=== PATIENT | female | born 1990 | race Caucasian/White ===

== ENCOUNTER 2017-02-25 06:32 | Emergency (ER) | payer OTHER ==
[2017-02-25] MEDS ORDERED: NORCO 5/325 PO ONE (09:22)
[2017-02-25] MEDS ORDERED: MOTRIN PO ONE (09:22)
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
--- NOTE | 2017-02-25 11:03 | XRay Report ---
LEFT HIP, 2 views: History: Left hip pain. The bony architecture is intact without evidence of fracture or dislocation. No significant soft tissue abnormality is seen. IMPRESSION: Normal left hip.
--- NOTE | 2017-02-25 11:03 | XRay Report ---
LEFT KNEE, 3 views: History: Left knee pain. There is normal bone mineralization. Previous ACL repair changes are identified. There are early osteoarthritic changes medial compartment. No evidence for fracture, malalignment or large joint effusion. IMPRESSION: No acute process identified.
--- NOTE | 2017-02-25 11:04 | XRay Report ---
LUMBOSACRAL SPINE, 3 VIEWS: History: Back pain Findings: The vertebral bodies, disk spaces and posterior elements are intact. No compression deformity or malalignment. The SI joints are symmetric and unremarkable. Impression: 1. No evidence for acute injury to the lumbar spine.
[2017-02-25 12:03] VITALS: BP 107/67
== END 2017-02-25 12:05 | disposition home or self-care (01) ==
LOC: ED 06:32
DX: S89.92XA Unspecified injury of left lower leg, initial encounter (principal); M25.552 Pain in left hip; M54.42 Lumbago with sciatica, left side; Z87.891 Personal history of nicotine dependence; V89.2XXA Person injured in unspecified motor-vehicle accident, traffic, initial encounter; Y93.89 Activity, other specified; Y99.8 Other external cause status; Y92.89 Other specified places as the place of occurrence of the external cause
CPT/HCPCS: 72100